=== PATIENT | male | born 1975 | race Caucasian/White ===

== ENCOUNTER 2020-06-30 08:16 | Day surgery (SDC) | payer BC, OTHER ==
[~2020-06-30] VITALS: Ht 182.9 cm; Wt 87.5 kg
[2020-06-30 08:50] VITALS: BP 129/85; PULSE 67; TEMP 98.1
[2020-06-30] MEDS ORDERED: PROTONIX 40MG T40 MG PO (08:56)
[2020-06-30] MEDS ORDERED: CYANOCOBAL1000 MCG/1 IM (08:57)
[2020-06-30] MEDS ORDERED: KLONOPIN 1MG1 MG PO (08:58)
[2020-06-30] MEDS ORDERED: TYLENOL 500MG500 MG PO (08:59)
[2020-06-30 10:17] VITALS: BP 120/83; PULSE 67; TEMP 97.7
--- NOTE | 2020-06-30 10:17 | NUR ---
PATIENT TRANSPORTED PER CART TO BAY 3 ACCOMPANIED BY ENDO STAFF. PATIENT AMBULATED FROM CART TO CHAIR WITH 1 ASSIST. STEADY GAIT. MONITORS APPIED AND PATIENT ON ROOM AIR. VSS. PATIENT TALKS WITH STAFF. AT BEDSIDE. VERBAL REPORT RECEIVED. 1020 PATIENT GIVEN COFFEE AND MUFFIN. PATIENT ALERT AND TALKING WITH .
[2020-06-30 10:30] VITALS: BP 120/78; PULSE 63
--- NOTE | 2020-06-30 10:30 | NUR ---
VSS ON ROOM AIR. PATIENT EATS AND DRINKS WITHOUT PROBLEMS. PATIENT DENIES DISCOMFORT AND NAUSEA.
[2020-06-30 10:45] VITALS: BP 115/72; PULSE 74
--- NOTE | 2020-06-30 10:47 | NUR ---
VSS ON ROOM AIR. PATIENT AND TALKING. DENIES PROBLEMS.
--- NOTE | 2020-06-30 10:55 | NUR ---
DOCTOR COMES TO ROOM AND SPEAKS WITH PATIENT AND .
[2020-06-30 11:00] VITALS: BP 124/72; PULSE 72
[2020-06-30 11:01] VITALS: BP 116/67; PULSE 64
--- NOTE | 2020-06-30 11:05 | NUR ---
VSS ON ROOM AIR. PATIENT DENIES DISCOMFORT AND NAUSEA. IV SITE DC'D INTACT AND PRESSURE AND BANDAGE APPLIED. DICHARGE INSTRUCTIONS GIVEN VERBAL AND WRITTEN PACKET. QUESTIONS ANSWERED AND PATIENT AND VOICED UNDERSTANDING. PATIENT CHANGES BACK INTO STREET CLOTHES. 1110 PATIENT DISCHARGED PER WHEELCHAIR ACCOMPANIED BY STAFF MEMBER. DRIVES POV.
== END 2020-06-30 11:10 | disposition home or self-care (01) ==
LOC: SDCO 08:16
DX: R10.9 Unspecified abdominal pain (principal); R11.0 Nausea; E53.8 Deficiency of other specified B group vitamins; K21.9 Gastro-esophageal reflux disease without esophagitis; R51 Headache; Z87.891 Personal history of nicotine dependence; Z79.899 Other long term (current) drug therapy
CPT/HCPCS: J2704; J3010; J7030